=== PATIENT | female | born 1960 | race Asian ===

== ENCOUNTER → 2017-08-22 | Outpatient (CLI) | END | disposition home or self-care (01) ==

== ENCOUNTER → 2017-08-29 | Outpatient (CLI) | END | disposition home or self-care (01) ==

== ENCOUNTER 2018-05-23 17:54 | Emergency (ER) | END 2018-05-23 21:50 | disposition home or self-care (01) ==

== ENCOUNTER 2019-02-24 21:18 | Emergency (ER) | payer SELFPAY ==
[~2019-02-24] VITALS: Ht 162.6 cm; Wt 72.7 kg
[~2019-02-24 21:18] MED LIST: ASPI-826 PO; CETI10TA19 PO; FLUT16SP17 NASAL; RANI300T PO
[2019-02-24 21:25] VITALS: BP 132/85; PULSE 73; RESP 18; Ht 162.6 cm; Wt 72.7 kg
== END 2019-02-24 23:00 | disposition left against medical advice (07) ==
LOC: FTE 21:18
DX: Z53.21 Procedure and treatment not carried out due to patient leaving prior to being seen by health care provider (principal)